=== PATIENT | male | born 1955 | race Caucasian/White ===

== ENCOUNTER 2022-12-10 12:51 | Outpatient (REF) | payer MEDICARE, SELFPAY ==
--- NOTE | ~2022-12-10 | CT_ITS ---
EXAMINATION: CT HEAD WITHOUT CONTRAST CLINICAL INFORMATION: Headaches and vertigo. COMPARISON: None. TECHNIQUE: Contiguous axial imaging was performed from the skullbase to vertex without intravenous administration of contrast. This CT examination was performed using dose optimization techniques as appropriate, variously including the following: *Automated exposure control *Adjustment of mA and/or kV according to patient size (this includes techniques or standardized protocols for targeted exams where dose is matched to indication/reason for exam; i.e. extremities or head) *Use of iterative reconstruction technique DLP: 861 mGy-cm. FINDINGS: There is no evidence of acute intracranial hemorrhage or territorial infarction. No abnormal mass effect or midline shift is seen. No extra-axial fluid collections are identified. Generalized parenchymal volume loss noted with concordant mild to moderate ex vacuo prominence of the ventricles. Mild chronic white matter microangiopathy noted. There is an incidental benign-appearing fibro-osseous lesion of the intra-sphenoid sinus osseous septation. The soft tissues are normal. The mastoid air cells are well aerated. Mild mucosal thickening noted in the paranasal sinuses. CT/CT head/brain wo IV con IMPRESSION: No acute intracranial pathology.
== END 2022-12-10 12:52 | disposition home or self-care (01) ==
LOC: HO.CT 12:51
PROVIDERS: PCP Physician Assistant Medical; Visit Provider Otolaryngology
DX: G44.219 Episodic tension-type headache, not intractable (principal); H81.4 Vertigo of central origin
CPT/HCPCS: 70450